=== PATIENT | female | born 1975 | race Caucasian/White ===

== ENCOUNTER 2016-11-23 10:24 | Emergency (ER) | payer OTHER ==
[~2016-11-23] VITALS: Ht 154.9 cm; Wt 90.7 kg
[~2016-11-23 10:24] MED LIST: EFFEXOR XR75 MG PO
[2016-11-23] MEDS ORDERED: COREG3.125 M1 PO (10:35)
[2016-11-23] MEDS ORDERED: LISINOPRIL-HCT1 EAC2 PO (10:36)
[2016-11-23] MEDS ORDERED: NORCO 5-325 TA1 EACH PO (12:39)
== END 2016-11-23 12:53 ==
LOC: EDMED 10:24
DX: S16.1XXA Strain of muscle, fascia and tendon at neck level, initial encounter (principal); S60.012A Contusion of left thumb without damage to nail, initial encounter; S80.02XA Contusion of left knee, initial encounter; M54.9 Dorsalgia, unspecified; R51 Headache; Z88.1 Allergy status to other antibiotic agents; Z91.040 Latex allergy status; V43.52XA Car driver injured in collision with other type car in traffic accident, initial encounter